=== PATIENT | male | born 1950 | race Caucasian/White ===

== ENCOUNTER 2016-08-22 16:40 | Emergency (ER) | payer MEDICARE, OTHER ==
[~2016-08-22] VITALS: Ht 170.2 cm; Wt 68.0 kg
[2016-08-22 17:09] VITALS: BP 99/61
[2016-08-22 17:40] LABS: Basophils # (auto) 0 uL; Basophils % (auto) 0.1 % (0.0-2.0); CONDITION Y; DEFINITIVE SEE PRINTOUT; Eosinophils # (auto) 0.1 uL; Eosinophils % (auto) 4.2 % (0.0-7.0); Hematocrit 25.2 % (41.0-53.0); Hemoglobin 8.1 g/dL (13.5-17.5); Lymphocytes # (auto) 0.5 uL; Lymphocytes % (auto) 16.1 % (10.0-50.0); Mean Corpuscular Hemoglobin 29.4 pg (28.0-32.0); Mean Corpuscular Hgb Conc. 32.1 g/dL (32.0-36.0); Mean Corpuscular Volume 91.4 fL (80.0-100.0); Mean Platelet Volume 8.1 fL (7.4-10.4); Monocytes # (auto) 0 uL; Neutrophils # (auto) 2.2 uL; Neutrophils % (auto) 78.6 % (37.0-80.0); Platelet Count (auto) 208 10^3/uL (140-450); Red Cell Distribution Width 15.7 % (11.6-16.0); White Blood Cell 2.9 10^3/uL (4.4-10.8)
[2016-08-22 18:01] LABS: Albumin 2.9 g/dL (3.4-5.0); BUN/Creatinine Ratio 13.4; Bilirubin, Total 0.9 mg/dL (0.2-1.0); Calcium 8.1 mg/dL (8.5-10.1); Potassium 4.2 mmol/L (3.5-5.1); Total Protein 5.7 g/dL (6.4-8.2)
== END 2016-08-23 06:09 | disposition left against medical advice (07) ==
LOC: ER 16:44
DX: R79.9 Abnormal finding of blood chemistry, unspecified (principal); R53.1 Weakness; Z53.21 Procedure and treatment not carried out due to patient leaving prior to being seen by health care provider
CPT/HCPCS: 36415; 80053; 85025; 93005

== ENCOUNTER 2017-06-24 12:15 | Inpatient (IN) | payer MEDICARE, OTHER ==
[~2017-06-24] VITALS: Ht 170.2 cm; Wt 70.8 kg
[2017-06-24 13:15] LABS: Mean Corpuscular Hgb Conc. 33.8 g/dL (32.0-36.0); White Blood Cell 2.6 10^3/uL (4.4-10.8)
[2017-06-24 13:17] LABS: Hematocrit 37.2 % (41.0-53.0); Hemoglobin 12.6 g/dL (13.5-17.5); Mean Corpuscular Hemoglobin 35.3 pg (28.0-32.0); Mean Corpuscular Volume 104.5 fL (80.0-100.0); Platelet Count (auto) 113 10^3/uL (140-450); Red Blood Cells 3.56 10^6/uL (4.5-5.90); Red Cell Distribution Width 15.5 % (11.8-14.3)
[2017-06-24 13:18] LABS: Band Neutrophils % (manual) 0; Basophils % (manual) 0 (0.0-2.0); Blast Cells 0; Metamyelocytes % 0; Myelocytes % 0; Promyelocytes % 0; Reactive Lymphocytes 0
[2017-06-24] MEDS ORDERED: SODIUM CHLORIDE 0.9% 1,000 ML IVB ONE (13:27)
[2017-06-24 13:29] LABS: Albumin 2.7 g/dL (3.4-5.0); BUN/Creatinine Ratio 7.7; Bilirubin, Total 2.4 mg/dL (0.2-1.0); Calcium 8.3 mg/dL (8.5-10.1); Total Protein 6.7 g/dL (6.4-8.2)
[2017-06-24 13:30] LABS: Lactic Acid w/Reflex 5.4 mmol/L (0.4-2.0)
[2017-06-24] MEDS ORDERED: CEFOXITIN SODIUM 1 GM in D5W 5% 50 ML IV ONE (13:30)
[2017-06-24 13:34] LABS: Potassium 2.9 mmol/L (3.5-5.1)
[2017-06-24] MEDS ORDERED: cefTRIAXone 1GM/10ml IVPUSH 10 ML IV ONE (13:45)
[2017-06-24 13:49] LABS: Magnesium 1.5 mg/dL (1.6-2.6)
[2017-06-24 14:02] LABS: INR 1.24 (0.9-1.15); Partial Thromboplastin Time 29.1 sec (22.64-33.71); Prothrombin Time 13.5 sec (9.37-12.3)
[2017-06-24 14:37] LABS: Eosinophils % (manual) 5 (0-7); Lymphocytes % (manual) 21 (10.0-50.0); Monocytes % (manual) 8 (0-12)
[2017-06-24] MEDS ORDERED: AZITHROMYCIN 500MG/ 250ML 250 ML IV ONE (15:15)
[2017-06-24 15:20] LABS: Urine Bacteria NONE SEEN /hpf (None Seen); Urine Blood Negative /uL (Negative); Urine Hyaline Cast FEW /lpf (0 - 2); Urine Mucus FEW (None Seen); Urine Specific Gravity 1.018 (1.001-1.035); Urine WBC 2 /hpf (0 - 3)
[2017-06-24] MEDS ORDERED: POTASSIUM CHL 20 Meq TABLET PO ONE ×2 (16:15)
[2017-06-24] MEDS ORDERED: NITROGLYCERIN 0.4 MG SL TAB SL PRN (16:45)
[2017-06-24] MEDS ORDERED: HYDROcodone-ACET 5/325MG TAB PO PRN (16:45)
[2017-06-24] MEDS ORDERED: ACETAMINOPHEN 325 MG TAB PO PRN (16:45)
[2017-06-24] MEDS ORDERED: DEXTROSE (50%) 50ML SYRG IV PRN (16:45)
[2017-06-24] MEDS ORDERED: VANCOMYCIN PER PHARMACY 0 MG IV SCH (16:45)
[2017-06-24] MEDS ORDERED: MORPHINE SULFATE 4 MG/ML SYR/VIAL IV PRN ×2 (16:45)
[2017-06-24] MEDS ORDERED: TEMAZEPAM 15 MG CAP PO PRN (16:45)
[2017-06-24] MEDS ORDERED: DOCUSATE SOD 100 MG CAP PO PRN (16:45)
[2017-06-24] MEDS ORDERED: ONDANSETRON HCL 4 MG/2 ML VIAL IV PRN (16:45)
[2017-06-24] MEDS: ACCU-CHEK COMFORT CURVE STRIP VI SCH ×2 (17:07→22:35)
[2017-06-24] MEDS: MAGNESIUM SULFATE 1GM/100ML 100 ML IV SCH ×2 (17:18→18:15)
[2017-06-24] MEDS: InsuLIN REG 1unit/0.01ml Soln (100units/ml) SC SCH ×2 (17:23→22:35)
[2017-06-24] MEDS: ALBUTEROL SULF 2.5 MG/0.5ML(0.5%) NEB SOLN NEB SCH ×2 (17:58→23:17)
[2017-06-24] MEDS: IPRATROPIUM BROM 0.5 MG/2.5ML INH SOL NEB SCH ×2 (17:58→23:17)
[2017-06-24] MEDS: VANCOMYCIN 1GM/250ML 250 ML IV SCH (18:10)
[2017-06-24 18:19] VITALS: BP 106/61
[2017-06-24] MEDS: Boost Glucose Control 8 Ounces PO SCH (18:21)
[2017-06-24 19:21] LABS: BUN/Creatinine Ratio 10.3; Calcium 7.5 mg/dL (8.5-10.1); Magnesium 2.3 mg/dL (1.6-2.6); Potassium 3.1 mmol/L (3.5-5.1)
[2017-06-24 19:24] LABS: Lactic Acid w/Reflex 2.4 mmol/L (0.4-2.0)
[2017-06-24] MEDS ORDERED: MULT-424 OR (21:54)
[2017-06-24] MEDS ORDERED: AZIT500T4 PO (21:54)
[2017-06-24] MEDS ORDERED: GUAI200T2 PO (21:54)
[2017-06-24] MEDS ORDERED: POTA10TA51 PO (21:54)
[2017-06-24] MEDS ORDERED: MAGN400T5 OR (21:54)
[2017-06-24] MEDS ORDERED: ALEN70TA55 PO (21:54)
[2017-06-24] MEDS ORDERED: GARL200T PO (21:54)
[2017-06-24] MEDS ORDERED: PANT40T PO (21:54)
[2017-06-24] MEDS ORDERED: FLUC200T50 PO (21:54)
[2017-06-24] MEDS ORDERED: AMIT25TA9 PO (21:54)
[2017-06-24] MEDS ORDERED: ATOV5SUS PO (21:54)
[2017-06-24] MEDS ORDERED: PRE1T PO (21:54)
[2017-06-24] MEDS ORDERED: TRAM50TA2 PO (21:55)
[2017-06-24] MEDS ORDERED: VALG1TAB PO (21:55)
[2017-06-24] MEDS ORDERED: FAMOTIDINE 20 MG TAB PO SCH (22:00)
[2017-06-24] MEDS: SODIUM CHLOR 0.9% PF (SALINE LOCK) 10ML VIAL/SYR IV SCH (22:35)
[2017-06-25] VITALS (7 sets, daily range): BP systolic 123–148; BP diastolic 70–98
[2017-06-25] MEDS: ACCU-CHEK COMFORT CURVE STRIP VI SCH ×4 (05:51→22:00)
[2017-06-25] MEDS: InsuLIN REG 1unit/0.01ml Soln (100units/ml) SC SCH ×4 (05:52→22:30)
[2017-06-25 06:53] LABS: Hematocrit 30.6 % (41.0-53.0); Mean Corpuscular Hgb Conc. 35.9 g/dL (32.0-36.0); Mean Corpuscular Volume 102.9 fL (80.0-100.0); Platelet Count (auto) 86 10^3/uL (140-450); Red Blood Cells 2.97 10^6/uL (4.5-5.90); White Blood Cell 3.1 10^3/uL (4.4-10.8)
[2017-06-25 06:59] LABS: Albumin 2.3 g/dL (3.4-5.0); Potassium 3.5 mmol/L (3.5-5.1)
[2017-06-25 07:04] LABS: BUN/Creatinine Ratio 10.9; Calcium 8.1 mg/dL (8.5-10.1)
[2017-06-25 07:06] LABS: Bilirubin, Total 1.6 mg/dL (0.2-1.0); Total Protein 5.7 g/dL (6.4-8.2)
[2017-06-25] MEDS: IPRATROPIUM BROM 0.5 MG/2.5ML INH SOL NEB SCH ×3 (07:20→19:05)
[2017-06-25] MEDS: ALBUTEROL SULF 2.5 MG/0.5ML(0.5%) NEB SOLN NEB SCH ×3 (07:20→19:05)
[2017-06-25 07:35] LABS: Basophils % (manual) 0 (0.0-2.0); Blast Cells 0; Eosinophils % (manual) 0 (0-7); Metamyelocytes % 0; Myelocytes % 0; Promyelocytes % 0; Reactive Lymphocytes 0
[2017-06-25 09:03] LABS: Band Neutrophils % (manual) 13; Lymphocytes % (manual) 26 (10.0-50.0); Monocytes % (manual) 4 (0-12)
[2017-06-25 09:49] LABS: Folate (Folic Acid) 16.05 ng/mL (5.38-24)
[2017-06-25] MEDS: Boost Glucose Control 8 Ounces PO SCH ×3 (11:02→18:00)
[2017-06-25] MEDS: SODIUM CHLOR 0.9% PF (SALINE LOCK) 10ML VIAL/SYR IV SCH ×3 (11:02→21:24)
[2017-06-25] MEDS: FAMOTIDINE 20 MG TAB PO SCH ×2 (11:11→21:24)
[2017-06-25] MEDS: cefTRIAXone 1GM/10ml IVPUSH 10 ML IV SCH (11:11)
[2017-06-25] MEDS: MULTIPLE VITAMIN TAB PO SCH (11:11)
[2017-06-25] MEDS ORDERED: POM PO ×2 (11:19)
[2017-06-25] MEDS ORDERED: CALC-450 OR (11:19)
[2017-06-25] MEDS ORDERED: FLU01T PO (11:19)
[2017-06-25] MEDS: ATOVAQUONE PO SCH (12:15)
[2017-06-25] MEDS ORDERED: predniSONE 5 MG TAB PO SCH (12:15)
[2017-06-25] MEDS: VALGANCICLOVIR 450MG TABLET PO SCH ×2 (12:15→21:25)
[2017-06-25] MEDS: TACROLIMUS 0.5 MG/ML PO SCH ×2 (12:15→21:25)
[2017-06-25] MEDS: predniSONE 5 MG TAB PO SCH (12:30)
[2017-06-25] MEDS: VANCOMYCIN 1GM/250ML 250 ML IV SCH (17:53)
[2017-06-26] MEDS: IPRATROPIUM BROM 0.5 MG/2.5ML INH SOL NEB SCH ×4 (00:28→19:26)
[2017-06-26] MEDS: ALBUTEROL SULF 2.5 MG/0.5ML(0.5%) NEB SOLN NEB SCH ×4 (00:28→19:26)
[2017-06-26 03:59] VITALS: BP 140/75
[2017-06-26 05:52] LABS: Mean Corpuscular Hgb Conc. 35.8 g/dL (32.0-36.0)
[2017-06-26 05:54] LABS: Hematocrit 29.6 % (41.0-53.0); Hemoglobin 10.6 g/dL (13.5-17.5); Mean Corpuscular Hemoglobin 36.6 pg (28.0-32.0); Mean Corpuscular Volume 102.3 fL (80.0-100.0); Platelet Count (auto) 84 10^3/uL (140-450); White Blood Cell 2.6 10^3/uL (4.4-10.8)
[2017-06-26 05:59] LABS: Band Neutrophils % (manual) 0; Basophils % (manual) 0 (0.0-2.0); Blast Cells 0; Metamyelocytes % 0; Myelocytes % 0; Promyelocytes % 0; Reactive Lymphocytes 0
[2017-06-26 06:05] LABS: Potassium 3.3 mmol/L (3.5-5.1)
[2017-06-26 06:09] LABS: Albumin 2.4 g/dL (3.4-5.0); BUN/Creatinine Ratio 12.6; Calcium 8.4 mg/dL (8.5-10.1)
[2017-06-26 06:23] LABS: Bilirubin, Total 1.7 mg/dL (0.2-1.0); Total Protein 5.9 g/dL (6.4-8.2)
[2017-06-26] MEDS: SODIUM CHLOR 0.9% PF (SALINE LOCK) 10ML VIAL/SYR IV SCH ×3 (06:34→21:01)
[2017-06-26] MEDS: ACCU-CHEK COMFORT CURVE STRIP VI SCH ×4 (06:34→21:39)
[2017-06-26] MEDS: InsuLIN REG 1unit/0.01ml Soln (100units/ml) SC SCH ×4 (06:34→21:39)
[2017-06-26] MEDS: ATOVAQUONE PO SCH (06:38)
[2017-06-26 06:51] LABS: Eosinophils % (manual) 3 (0-7); Lymphocytes % (manual) 44 (10.0-50.0); Monocytes % (manual) 8 (0-12)
[2017-06-26 08:00] VITALS: BP 140/75
[2017-06-26] MEDS: VALGANCICLOVIR 450MG TABLET PO SCH ×2 (10:02→21:01)
[2017-06-26] MEDS: Boost Glucose Control 8 Ounces PO SCH ×3 (10:02→18:17)
[2017-06-26] MEDS: cefTRIAXone 1GM/10ml IVPUSH 10 ML IV SCH (10:02)
[2017-06-26] MEDS: TACROLIMUS 0.5 MG/ML PO SCH ×2 (10:03→10:05)
[2017-06-26] MEDS: FAMOTIDINE 20 MG TAB PO SCH ×2 (10:03→21:01)
[2017-06-26] MEDS: predniSONE 5 MG TAB PO SCH (10:04)
[2017-06-26] MEDS: MULTIPLE VITAMIN TAB PO SCH (10:04)
[2017-06-26 12:00] VITALS: BP 140/74
[2017-06-26 16:00] VITALS: BP 150/94
[2017-06-26] MEDS: VANCOMYCIN 1GM/250ML 250 ML IV SCH (18:17)
[2017-06-26 19:54] VITALS: BP 136/79
[2017-06-26 23:28] VITALS: BP 138/78
[2017-06-27] MEDS: ALBUTEROL SULF 2.5 MG/0.5ML(0.5%) NEB SOLN NEB SCH ×2 (00:47→06:31)
[2017-06-27] MEDS: IPRATROPIUM BROM 0.5 MG/2.5ML INH SOL NEB SCH ×2 (00:47→06:32)
[2017-06-27 04:30] VITALS: BP 116/67
[2017-06-27 05:23] LABS: Hemoglobin 10.5 g/dL (13.5-17.5); White Blood Cell 2.8 10^3/uL (4.4-10.8)
[2017-06-27 05:24] LABS: Mean Corpuscular Hemoglobin 37.2 pg (28.0-32.0); Mean Corpuscular Hgb Conc. 36.2 g/dL (32.0-36.0); Mean Corpuscular Volume 102.7 fL (80.0-100.0); Platelet Count (auto) 80 10^3/uL (140-450); Red Blood Cells 2.82 10^6/uL (4.5-5.90); Red Cell Distribution Width 15.9 % (11.8-14.3)
[2017-06-27 05:31] LABS: Basophils % (manual) 0 (0.0-2.0); Blast Cells 0; Metamyelocytes % 0; Myelocytes % 0; Promyelocytes % 0
[2017-06-27 05:34] LABS: Albumin 2.3 g/dL (3.4-5.0); Calcium 8.3 mg/dL (8.5-10.1)
[2017-06-27 05:47] LABS: Bilirubin, Total 1.4 mg/dL (0.2-1.0); Total Protein 5.9 g/dL (6.4-8.2)
[2017-06-27] MEDS: VANCOMYCIN 1GM/250ML 250 ML IV SCH (06:11)
[2017-06-27] MEDS: SODIUM CHLOR 0.9% PF (SALINE LOCK) 10ML VIAL/SYR IV SCH (06:11)
[2017-06-27] MEDS: ATOVAQUONE PO SCH (06:12)
[2017-06-27] MEDS: ACCU-CHEK COMFORT CURVE STRIP VI SCH ×2 (06:12→11:43)
[2017-06-27] MEDS: InsuLIN REG 1unit/0.01ml Soln (100units/ml) SC SCH ×2 (06:12→11:30)
[2017-06-27 06:30] LABS: Band Neutrophils % (manual) 1; Eosinophils % (manual) 5 (0-7); Lymphocytes % (manual) 33 (10.0-50.0); Monocytes % (manual) 12 (0-12); Reactive Lymphocytes 1
[2017-06-27 08:00] VITALS: BP 111/72
[2017-06-27] MEDS: Boost Glucose Control 8 Ounces PO SCH (08:00)
[2017-06-27] MEDS: cefTRIAXone 1GM/10ml IVPUSH 10 ML IV SCH (09:04)
[2017-06-27] MEDS: TACROLIMUS 0.5 MG/ML PO SCH (09:08)
[2017-06-27] MEDS ORDERED: POTASSIUM CHL 10% (20 MEQ/15ML) 15ml ORAL SOLN GT ONE (10:15)
[2017-06-27] MEDS: MULTIPLE VITAMIN TAB PO SCH (10:21)
[2017-06-27] MEDS: predniSONE 5 MG TAB PO SCH (10:21)
[2017-06-27] MEDS: FAMOTIDINE 20 MG TAB PO SCH (10:21)
[2017-06-27] MEDS: VALGANCICLOVIR 450MG TABLET PO SCH (10:22)
[2017-06-27 11:45] VITALS: BP 117/68
[2017-06-27 12:10] VITALS: BP 117/68
== END 2017-06-27 12:54 | disposition short-term general hospital (02) | DRG 871 ==
LOC: ER 12:15 → TELE 12:16 → DOU IN ICU 06-25 01:04
PROVIDERS: ADMIT Internal Medicine; ATTEND Family Medicine
DX: A41.9 Sepsis, unspecified organism (principal); J18.1 Lobar pneumonia, unspecified organism; E44.0 Moderate protein-calorie malnutrition; Z76.82 Awaiting organ transplant status; K76.81 Hepatopulmonary syndrome; Z94.2 Lung transplant status; D68.9 Coagulation defect, unspecified; I50.42 Chronic combined systolic (congestive) and diastolic (congestive) heart failure; K76.6 Portal hypertension; E11.21 Type 2 diabetes mellitus with diabetic nephropathy; D69.6 Thrombocytopenia, unspecified; E83.42 Hypomagnesemia; N18.3 Chronic kidney disease, stage 3 (moderate); E83.51 Hypocalcemia; E87.6 Hypokalemia; I27.20 Pulmonary hypertension, unspecified; Z99.81 Dependence on supplemental oxygen; J44.9 Chronic obstructive pulmonary disease, unspecified; H92.02 Otalgia, left ear; D63.8 Anemia in other chronic diseases classified elsewhere; E11.22 Type 2 diabetes mellitus with diabetic chronic kidney disease; E11.65 Type 2 diabetes mellitus with hyperglycemia; Z82.49 Family history of ischemic heart disease and other diseases of the circulatory system; Z68.24 Body mass index [BMI] 24.0-24.9, adult
CPT/HCPCS: 36415; 71046; 80048; 80053; 80202; 81001; 82607; 82746; 82962; 83036; 83605; 83735; 83880; 84443; 84484; 85007; 85027; 85610; 85730; 87040; 87081; 87804; 93005; 93306; 94640; 94761; 96365; 96366; 96367; 96375; 97116; 97530; J1815; J7060